=== PATIENT | male | born 1950 | race Caucasian/White ===

== ENCOUNTER 2017-05-03 16:22 | Observation (INO) | payer MEDICARE ==
[2017-05-03] MEDS ORDERED: Prochlorperazine TAB* 10 MG PO PRN (17:14)
[2017-05-03] MEDS ORDERED: Acetaminophen TAB* 325 MG PO PRN (17:14)
[2017-05-03] MEDS ORDERED: Ondansetron TAB* 4 MG PO PRN (17:14)
[2017-05-03] MEDS ORDERED: Warfarin TAB(*) 5 MG PO ONE (20:00)
--- NOTE | 2017-05-03 20:41 | RAD ---
INDICATION: Abdominal pain. Prostate cancer. COMPARISON: CT chest/abdomen/pelvis March 14, 2017 TECHNIQUE: Noncontrast axial source images were acquired from the level hemidiaphragms to the symphysis pubis as part of CT imaging for renal stone. Lung bases: There is cardiomegaly. There is mild linear change lung base. The remainder the visualized lung bases are clear. Liver: The liver is normal in size. Noncontrast imaging shows no evidence of a hepatic mass or ductal dilatation. Gallbladder: Cholecystectomy. Spleen: The spleen is normal in size. The noncontrast CT appearance is normal. Pancreas: Noncontrast imaging shows no pancreatic mass or ductal dilitation. Adrenal glands: No masses are identified. Kidneys/Bladder: There is no evidence of nephrolithiasis or CT evidence of hydronephrosis. Noncontrast imaging shows no evidence of a new renal mass. There are low-density right renal lesion of the mid poles of each kidney. On the right a lesion along the medial cortex measures 1.8 cm and on the left lesion along the posterior cortex measures 1.7 cm. These are better evaluated on the earlier contrast-enhanced examination. The bladder is unremarkable.. Adenopathy: There is no evidence of intraperitoneal or retroperitoneal adenopathy. Evaluation is limited without oral contrast. Fluid collections: There are no free or localized fluid collections. Vessels: The aorta and iliac vessels are normal in caliber. There are no significant atherosclerotic changes. The IVC appears normal Pelvic organs: The prostate and seminal vesicles appear normal GI tract: There are no CT abnormalities of the upper GI tract. There is mild bowel wall thickening and perienteric fat stranding at the level of the sigmoid colon. There are no findings of obstruction or perforation. Soft tissues: No soft tissue abnormalities of the extraperitoneal abdomen or pelvis are identified. Osseous structures: There are lytic lesions of T12 and L3. There is a lytic and sclerotic focus involving the ischium. There are additional more subtle areas of either rarefaction or sclerosis consistent with bony metastases. Overall, there is no significant interval change. IMPRESSION: 1. There is mild stranding of the perienteric fat at the level of the sigmoid colon suggesting a colitis. 2. Polyostotic metastatic disease without demonstrable change in the short interval. 3. Indeterminate, bilateral renal lesions as described on earlier images. 4. Cardiomegaly. 5. Cholecystectomy.
[2017-05-03] MEDS: oxyCODONE TAB* 5 MG TAB PO SCH (21:09)
[2017-05-03] MEDS: Methadone TAB* 10 MG PO SCH (21:11)
[2017-05-03] MEDS: metroNIDAZOLE TAB* 250 MG PO SCH (21:12)
[2017-05-03] MEDS: Ciprofloxacin TAB* 500 MG PO SCH (21:13)
[2017-05-04] MEDS: oxyCODONE TAB* 5 MG TAB PO SCH ×5 (01:40→18:54)
[2017-05-04] MEDS ORDERED: Calcium Carbonate CHEW TAB* 500 MG (TUMS) PO ONE (03:35)
[2017-05-04 07:48] LABS: Hematocrit 26 % (42-52); Hemoglobin 8.7 g/dl (14.0-18.0)
[2017-05-04 07:49] LABS: Comments Flag Yes
[2017-05-04] MEDS ORDERED: Omeprazole CAP* 20 MG PO SCH (09:00)
[2017-05-04] MEDS: Methadone TAB* 10 MG PO SCH ×3 (09:21→17:07)
[2017-05-04] MEDS: metroNIDAZOLE TAB* 250 MG PO SCH ×2 (09:22→14:27)
[2017-05-04] MEDS: Ciprofloxacin TAB* 500 MG PO SCH (09:22)
[2017-05-04] MEDS ORDERED: oxyCODONE TAB* 5 MG TAB PO ONE (11:37)
[2017-05-04] MEDS ORDERED: Methadone TAB* 10 MG PO ONE (15:00)
--- NOTE | 2017-05-04 16:03 | CONSULT ---
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 He has completed three lines of chemotherapy and was recently started on palliative Gemcitabine/Vinorelbine and has had palliative radiation to his hips/pelvis lesions and right scapula. He has had a difficult time with pain management. He was using ibuprofen for bone pain with fairly good relief until about a year ago, when he tells me he was advised to d/ c this NSAID because of renal effects. I see that in May 2016 his creatinine peaked at 1.86 with an eGFR of 47. He was initially treated with oxycontin, but needed escalating doses, so was switched to Fentanyl patches. He was unable to use the Fentanyl patch because his profuse disphoresis made the patch fall off. He was then started on methadone, but has found little, if any, relief with this drug. He is interested in trying other medications, but he does not want to try medical marijuana. He is admitted on this occasion for severe constipation with following bloody diarrhea, initially suspected to be c.difficile, possibly due to diverticulitis. He feels many of his complaints are due to his chemotherapy, including GI disturbances, overwhelming fatigue that is becoming more prevalent over time, weakness, rhinorrhea and anorexia with a 20-30 lb. weight loss (180 to 153 lb) over the past two years. He denies SOB. The patient was diagnosed with a pulmonary embolism 4 to 6 weeks ago, and has been anticoagulated since that time. He has a history of GERD and dyspepsia, and is on omeprazole. Lab Values: Abnormal Lab Results 05/03/17 05/04/17 05/04/17 21:45 06:24 07:25 Hgb Hct INR (Anticoag Therapy) 1.28 H 2.28 H Hepatitis C Antibody Nonreactive 05/04/17 07:25 Hgb 8.7 L Hct 26 L INR (Anticoag Therapy) Hepatitis C Antibody Laboratory Last Values Hgb 8.7 g/dl (14.0-18.0) L 05/04/17 07:25 Hct 26 % (42-52) L 05/04/17 07:25 INR (Anticoag Therapy) 2.28 (0.77-1.02) H 05/04/17 07:25 Hepatitis C Antibody Nonreactive (Nonreactive) 05/04/17 06:24 - Objective Active Medications: Acetaminophen (Tylenol Tab*) 650 mg PO Q6H PRN PRN Reason: PAIN Ciprofloxacin (Cipro Tab*) 500 mg PO Q12HR [facility] Last Admin: 05/04/17 09:22 Dose: 500 mg Heparin Sodium (Porcine) (Heparin Flush Port (Ivad)) 5 ml FLUSH DAILY [facility] PRN Reason: Protocol Last Admin: 05/04/17 11:21 Dose: Not Given Methadone HCl (Dolophine Tab*) 20 mg PO QID [facility] Metronidazole (Flagyl Tab*) 500 mg PO TID [facility] Last Admin: 05/04/17 14:27 Dose: 500 mg Omeprazole (Prilosec Cap*) 20 mg PO QAM [facility] Last Admin: 05/04/17 09:20 Dose: 20 mg Ondansetron HCl (Zofran Tab*) 8 mg PO Q8HR PRN PRN Reason: NAUSEA Oxycodone HCl (Roxycodone Tab*) 10 mg PO Q4H [facility] Last Admin: 05/04/17 14:25 Dose: 10 mg Pharmacy Profile Note (Coumadin Per Pharmacy*) 0 note FOLLOW UP .PER PHARMACY PROTOC [facility] PRN Reason: Protocol Prochlorperazine (Compazine Tab*) 10 mg PO Q6H PRN PRN Reason: NAUSEA Warfarin Sodium (Coumadin Tab(*)) 3 mg PO 1700 ONE Stop: 05/04/17 17:01 Vital Signs: Vital Signs: Temp Pulse Resp BP Pulse Ox 97.7 F 93 16 117/79 99 05/04/17 11:10 05/04/17 11:10 05/04/17 15:07 05/04/17 11:10 05/04/17 11:10 Patient Weight: Weight 155 lb 14.4 oz Intake and Output: Intake & Output 05/02/17 05/03/17 05/04/17 05/05/17 06:59 06:59 06:59 06:59 Intake Total 0 690 Balance 0 690 Weight 155 lb 14.4 oz Intake: Oral 0 690 Other: Estimated Void Small # Bowel Movements 8 Estimated Stool Amount Small # Voids 4 ADLs: Meal Record Start: 05/03/17 17: 43 Freq: DAILY@0900,1400,1800 Status: Active Protocol: Created 05/03/17 17:43 System (Rec: 05/03/17 17:43 System [id number]) Document 05/03/17 18:00 [id number] (Rec: 05/03/17 18:28 [id number]) Document 05/04/17 09:00 [id number] (Rec: 05/04/17 10:32 [id number]) Document 05/04/17 13:27 [id number] (Rec: 05/04/17 13:28 [id number]) Intake and Output Start: 05/03/17 17: 43 Freq: DAILY@0600,1400,2200 Status: Active Protocol: Created 05/03/17 17:43 System (Rec: 05/03/17 17:43 System [id number]) Document 05/03/17 22:00 [id number] (Rec: 05/03/17 23:27 [id number]) Document 05/04/17 06:00 [id number] (Rec: 05/04/17 06:08 [id number] TELE-C01) Document 05/04/17 13:27 [id number] (Rec: 05/04/17 13:28 [id number]) General Impression: Pleasant man in NAD, alert and conversational. Head: Symmetrical Eyes: No Scleral Icterus Ears/Nose/Mouth/Throat: Clear Oropharnyx Neck: NL Appearance and Movements; NL JVP, Trachea Midline Cardiovascular: No Edema Respiratory: Symmetrical Chest Expansion and Respiratory Effort Neurological: Alert and Oriented x 3 - Assessment Assessment: I would like to try to find better pain management for this patient. The methadone has not been helpful. He has not tried Dilaudid, and I think this would be a reasonable option. He has been using oxycodone 10 mg Q 4 h p.r.n. and this could be replaced with 3 mg of hydromorphone Q 3 h p.r.n. If this were effective, his methadone could be tapered and replaced with long-acting Dilaudid. Also, the vast majority of his pain is bone pain, which he rates as a 6 to 7/10 most of the time, and since NSAIDs are so effective with this type of pain, it would be fortunate if we could restart a NSAID, despite his transient renal compromise, and his anticoagulation. It would be reasonable to try sulindac (Clinoril) or nabumetone (Relafen) or salsalate, although gastric protection with Cytotec as well as a PPI would be advisable. The patient is a full code. In discussing his disease and prognosis, he is quite aware that he has end-stage disease and has a limited prognosis. In fact, in April 2015 when he was first diagnosed, he was told he could expect to live 1.5 to 2 years. Now 2 years later he is pleased with his survival, and recognizes he has a limited prognosis. I spoke with him about CPR, and he was in agreement that this would be traumatic and probably unsuccessful, but his is not present and he says she is the one who does not want him to "give up." I had already scheduled an outpatient consultation for this patient for later this week, and we agreed he would come to that appointment with his so that they could discuss it together. Thank you so much for asking me to see this pleasant patient. I hope I will be able to be helpful to him. - Plan Consult Plan (MU): Palliative - Time On Unit Date of Evaluation: 05/04/17 Hospice Consult Time in: 15:00 Hospice Consult Time Out: 16:30 Hospice Consult Time Total: 90 > 50% of Time Spend In Counseling or Coordinating Care: Yes
[2017-05-04] MEDS ORDERED: Warfarin TAB(*) 3 MG PO ONE (17:00)
[2017-05-05 00:22] VITALS: BP 126/66
== END 2017-05-04 21:19 | disposition home or self-care (01) ==
LOC: MEDTELE 17:31
PROVIDERS: ADMIT Internal Medicine Hematology & Oncology; ATTEND Internal Medicine Hematology & Oncology
DX: K57.92 Diverticulitis of intestine, part unspecified, without perforation or abscess without bleeding (principal); G89.29 Other chronic pain; C41.9 Malignant neoplasm of bone and articular cartilage, unspecified; I26.99 Other pulmonary embolism without acute cor pulmonale; Z79.01 Long term (current) use of anticoagulants
CPT/HCPCS: 36415; 74176; 85014; 85018; 85610; 86803; 99219; A9270-GY; G0378; J1642